=== PATIENT | female | born 1970 | race Caucasian/White ===

== ENCOUNTER 2017-01-20 13:09 | Inpatient (IN) | payer OTHER ==
--- NOTE | ~2017-01-20 | CR63 ---
[facility] A Service of [facility] RADIOLOGY TEXT RESULTS PATIENT: ADELA JAVIER LOCATION: [facility] 338-01 : [birth year] UNIT #: [id number] AGE: [address]: ANGELA CLIFTON MD SEX: F ORDER DR: [id number] [place] [id number] [facility] [place]. [place], [place] [address] [id number] MR#: [id number] #: [id number] NAME: ADELA JAVIER : 1970 SEX: F STUDY DATE/TIME: 01/20/2017 14:01 UNIT: [facility] ROOM: STUDY DESCRIPTION: CR Chest 2 View Attending Physician: Dax Wade M.D. Ordering Physician: Dax Wade M.D. Primary Care Physician: Roman Shabazz M.D. MEDICAL IMAGING REPORT This report is preliminary unless electronic signature is present EXAM PA and lateral chest. HISTORY Cough and congestion and shortness of air today. FINDINGS 2 views of the chest demonstrate mild hyperinflation of both lungs. Wyvo-au-ytskwubd interstitial prominence bilaterally, primarily in the lower lungs, could be due to interstitial pneumonitis or edema or scarring. No prior chest x-rays are available for comparison. Small calcified granuloma lateral left lung base. No pleural effusions. Bilateral breast implants. IMPRESSION 1. Moderate interstitial prominence in the lower lungs could be secondary to interstitial pneumonitis or edema or scarring. No prior chest x-rays available for comparison. 2. No focal airspace consolidation. 3. No pleural effusions. Dictated by... Viet Sellers M.D. THIS IS AN ELECTRONICALLY VERIFIED REPORT Viet Sellers M.D. at 01/20/2017 11:24 PM JOEY/gabrielle TD: 01/20/2017 17:26 JOB #: [id number] [facility] A Service of [facility] RADIOLOGY TEXT RESULTS PATIENT: ADELA JAVIER LOCATION: [id number] [birth year] UNIT #: [id number] AGE: [address]: ANGELA CLIFTON MD SEX: F ORDER DR: MEDICAL IMAGING REPORT COPY
--- NOTE | ~2017-01-20 | EKG ---
PATIENT: ADELA JAVIER UNIT #: [id number] Ventricular Rate: 116 BPM Atrial Rate: 116 BPM P-R Interval: 168 ms QRS Duration: 90 ms Q-T Interval: 330 ms QTC Calculation(Bezet): 458 ms P [place]: 76 degrees Calculated R [place]: 66 degrees Calculated T [place]: 62 degrees Diagnosis Line: Sinus tachycardia Diagnosis Line: Left atrial enlargement Diagnosis Line: Nonspecific ST abnormality Diagnosis Line: Abnormal ECG Diagnosis Line: Diagnosis Line: Confirmed by KENNEDY ALATORRE MD ([id number]) on 01/21/2017 Diagnosis Line: 5:41:30 PM INTERPRETING MD: LANDRY FRAGA
--- NOTE | ~2017-01-20 | DS ---
Unit #: [id number] #: [id number] Patient: ADELA JAVIER [id number] [address] [address] [id number] I MR#: [id number] NAME: ADELA JAVIER ROOM: 213 Age: 46 Sex: F Admission Date: 01/20/2017 : 1970 Discharge Date: 01/22/2017 Attending Physician: Zelda Tyson M.D. Primary Care Physician: Roman Shabazz M.D. DISCHARGE SUMMARY PRIMARY CARE PHYSICIAN Dr. Roman Shabazz. PRINCIPAL DIAGNOSES 1. Sepsis secondary to bilateral community-acquired pneumonia. 2. Acute hypoxic respiratory failure, now resolved. 3. Bronchospasm secondary to pneumonia. 4. Hypokalemia. 5. Steroid-induced anxiety. 6. Moderate protein malnutrition. CONSULTANTS None. PROCEDURES 1. Chest x-ray on 01/20/2017 with interstitial prominence in the lower lungs. 2. CT angiogram of the chest on 01/20/2017, which was negative for pulmonary embolism. There are bilateral bronchopneumonia with multifocal patchy nodular densities and tree-in-bud nodular densities throughout both lungs. CLINICAL HISTORY AND HOSPITAL COURSE Ms. Serena Ashford is a very nice 46-year-old female, who presents to the emergency department with cough and chest congestion in addition to significant weakness. Oxygen saturations were low normal upon presentation. Chest x-ray revealed mild pneumonitis and she subsequently underwent a CT angiogram of the chest, which was negative for PE, but did reveal bilateral pneumonia. Upon presentation to the emergency department, the patient's white blood cell count was found to be significantly elevated at 23,000. She was subsequently admitted. The patient was placed on empiric Levaquin. Unfortunately the following day, she still had significant rhonchi and was having a small amount of wheezing as well. White blood cell count was only down to 18,000, though she did remain afebrile. I continued her on Levaquin and placed her on a small dose of IV steroids. This morning, her lungs are much more clear and her hypoxia even ambulating is likely normal. I will know ambulating oxygen saturation still pending. Her white blood cell count is down to 14,000 and this is while on steroid therapy. Unfortunately, she has not slept all night, is quite jittery from steroids and thus, I am going to discontinue them. I think she will improve on Levaquin only as an outpatient and assuming her ambulating oxygen saturation is normal, she Unit #: [id number] #: [id number] Patient: ADELA JAVIER can be discharged home. DISCHARGE CONDITION Stable. DISCHARGE STATUS Discharged to home. DISCHARGE MEDICATIONS Levaquin 750 mg p.o. daily for another five days, diclofenac 75 mg p.o. b.i.d., Percocet 10/325 one tablet p.o. q.4 hours p.r.n. for pain, and tizanidine 4 mg p.o. t.i.d. DISCHARGE INSTRUCTIONS The patient was instructed to follow a regular diet. She can increase her activity as tolerated. FOLLOWUP The patient will follow up with Dr. Shabazz in 2 weeks. Dictated by... Zelda Tyson M.D. ARA/ekaterina TD: 01/24/2017 05:47 JOB #: [id number] DISCHARGE SUMMARY X Zelda Tyson MD X DISCHARGE SUMMARY
--- NOTE | ~2017-01-20 | CT16 ---
[facility] A Service of [facility] RADIOLOGY TEXT RESULTS PATIENT: ADELA JAVIER LOCATION: [facility] : [birth year] UNIT #: [id number] AGE: [address]: Zelda Tyson MD SEX: F ORDER DR: [id number] [facility] [address] [facility] [place]. [place], [place] [address] [id number] I MR#: [id number] Acc #: [id number] NAME: ADELA JAVIER : 1970 SEX: F STUDY DATE/TIME: 01/20/2017 16:46 UNIT: [address] ROOM: [facility] STUDY DESCRIPTION: CT Angio Chest for PE Attending Physician: Michael Rivera M.D. Ordering Physician: Dax Wade M.D. Primary Care Physician: Roman Shabazz M.D. MEDICAL IMAGING REPORT This report is preliminary unless electronic signature is present EXAM CT angiography of the chest with contrast, pulmonary embolism protocol. DATE OF EXAM 01/20/2017 HISTORY 46-year-old female with cough, congestion, fever and shortness of breath for 1 week. COMPARISON PA and lateral chest radiograph 01/20/2017 at 14:01. COMPARISON No previous CT chest at this institution for comparison. PROCEDURE 2 mm axial images through the chest after IV contrast administration. 3-D coronal and MIP reformatted images were obtained. TECHNIQUE NOTE: This CT exam was performed with one or more of the following radiation dose reduction techniques: automatic exposure control, adjustment of mA and/or kV according to patient size, and iterative reconstruction. FINDINGS Multifocal patchy alveolar opacities are scattered throughout both lungs, with extensive clustered tiny nodular densities throughout both lungs, mostly within a tree-in-bud nodular configuration. Findings are consistent with the appearance of bilateral bronchopneumonia. The more dense consolidative change is present within the right middle lobe. [facility] A Service [facility] RADIOLOGY TEXT RESULTS PATIENT: ADELA JAVIER LOCATION: [facility] : [birth year] UNIT #: [id number] AGE: [address]: Zelda Tyson MD SEX: F ORDER DR: No pericardial effusion or pleural effusion. Mildly prominent mediastinal lymph nodes including a subcarinal node measuring 1.3 cm short axis, right paratracheal node measuring 8 mm, thought to be reactive. Normal caliber of the thoracic aorta without dissection. Normal heart size. No pulmonary embolism. Included portions of the upper abdominal organs are within normal limits. No acute osseous abnormalities are identified. Benign calcified granulomatous changes are present in the left lung. IMPRESSION 1. Features of bilateral bronchopneumonia with multifocal patchy nodular densities and tree-in-bud nodular densities throughout both lungs. The most dense consolidative type changes present within the right middle lobe. Short-term radiograph or CT chest followup to document resolution is recommended. 2. No pulmonary embolism. Dictated by... Heather Velázquez M.D. THIS IS AN ELECTRONICALLY VERIFIED REPORT Heather Velázquez M.D. at 01/21/2017 11:57 AM AUBREE/rita TD: 01/21/2017 00:31 JOB #: [id number] MEDICAL IMAGING REPORT COPY
--- NOTE | ~2017-01-20 | HP ---
Unit #: [id number] #: [id number] Patient: ADELA JAVIER [id number] [address] [address] [id number] I MR#: [id number] NAME: ADELA JAVIER ROOM: 25059 Age: 46 Sex: F Admission Date: 01/20/2017 : 1970 Attending Physician: Michael Rivera M.D. Primary Care Physician: Roman Shabazz M.D. HISTORY AND PHYSICAL CHIEF COMPLAINT Cough and chest congestion. HISTORY OF PRESENT ILLNESS The patient is a 46-year-old female with a history of chronic pain of neck and jaws, brought to the emergency room complaining of chest congestion and cough. The patient stated that it started as an upper respiratory infection last Wednesday and has gradually progressed to the point that she could not take it anymore. The patient also stated that she had a wedding shower over the weekend, and she worked continuously for the weekend, and then she was so tired on Wednesday night that she could not breathe. The patient was found to have interstitial pneumonitis on chest x-ray and is being admitted for the above reasons. The patient was found to be hypoxic on room air to 92%. Patient was placed on two liters nasal cannula, and now the patient is saturating 98% on two liters. She denies any fever, chills, nausea, vomiting, diaphoresis, or chest pain. PAST MEDICAL HISTORY Chronic pain at the neck and jaws. PAST SURGICAL HISTORY 1. Foot surgery. 2. Tubal ligation. HOME MEDICATIONS 1. Percocet. 2. Diclofenac. 3. Tizanidine. SOCIAL HISTORY No history of smoking, alcohol, or any illicit drug abuse. FAMILY HISTORY Reviewed and none. ALLERGIES PENICILLIN CAUSES HIVES, RASH, AND FLUSH. REVIEW OF SYSTEMS A 14-point review of systems was performed and only pertinent positive findings are described above. The remaining are negative. Unit #: [id number] #: [id number] Patient: ADELA JAVIER PHYSICAL EXAMINATION GENERAL: Patient is sitting on the bed not in acute distress. VITAL SIGNS: Temperature 97.1, pulse 106, respiratory rate 17, blood pressure 141/102, and saturating 97% on room air. HEENT: Head atraumatic, normocephalic. Pupils equal, round, and reactive to light and accommodation. Extraocular movements are intact. Dry mucous membranes. NECK: Supple. No JVD. LUNGS: Decreased air entry at the bases. Positive for wheezing. HEART: Regular rate and rhythm. ABDOMEN: Soft. Positive bowel sounds. EXTREMITIES: No cyanosis, no clubbing, no edema. NEUROLOGIC: Alert, awake, and oriented. No gross focal motor deficit. DIAGNOSTIC STUDIES LABORATORY: Glucose 105, BUN 7, creatinine 0.6, sodium 133, potassium 3, chloride 93, bicarb 29, calcium 8.6, albumin 2.9, ALT 52, alkaline phosphatase 168, and AST 21. WBC 22.9, hemoglobin 13, hematocrit 38.7, platelets 432,000, and neutrophils 88.7 with a bandemia of 14%. Flu screen is negative. IMAGING: Chest x-ray shows moderate interstitial prominence in the lower lungs could be secondary to interstitial pneumonitis, edema, or scarring. No prior chest x-rays available for comparison. No focal airspace consolidation. No pleural effusions. CARDIOLOGY: EKG shows sinus tachycardia at a rate of 116, P-R interval of 168, nonspecific ST and T abnormality, and QTc of 458. ASSESSMENT 1. Interstitial pneumonitis. 2. Hyponatremia. 3. Hypokalemia. PLAN Admit patient as observation with telemetry. Continue IV antibiotics with levofloxacin and DuoNebs. Check the sputum cultures. Replace the electrolytes per protocol. Check the BNP. Further recommendations will follow. Dictated by Ace Sylvester TD: 01/20/2017 19:24 JOB #: [id number] HISTORY AND PHYSICAL X X HISTORY AND PHYSICAL
--- NOTE | ~2017-01-20 | DS ---
Unit #: [id number] #: [id number] Patient: ADELA JAVIER [id number] [address] [address] [id number] I MR#: [id number] NAME: ADELA JAVIER ROOM: 213 Age: 46 Sex: F Admission Date: 01/20/2017 : 1970 Discharge Date: 01/22/2017 Attending Physician: Zelda Tyson M.D. Primary Care Physician: Roman Shabazz M.D. DISCHARGE SUMMARY ADDENDUM Please note the patient's urine antigen returned positive for Streptococcus pneumoniae, thus she has sepsis secondary to bilateral Streptococcus pneumoniae pneumonia. Dictated by... Ace Carlos/ekaterina TD: 01/24/2017 05:09 JOB #: [id number] DISCHARGE SUMMARY X Zelda Tyson MD X DISCHARGE SUMMARY
[2017-01-20 14:01] LABS: INFLUENZA A NEG (NEG); INFLUENZA B NEG (NEG)
[2017-01-20 14:16] LABS: BASOPHIL% 0.2 % (0-2.5); DIFF IND YES; HEMATOCRIT 38.7 % (35.0-45.0); LYMPHOCYTE# 1.4 X10e3 (1.0-3.5); LYMPHOCYTE% 6.3 % (17.0-45.0); MEAN CELL VOLUME 94.4 FL (83-96); MEAN CORPUSCULAR HEMOGLOBIN 31.8 PG (28-34); MEAN CORPUSCULAR HGB CONC 33.7 g/dL (30-36); MEAN PLATELET VOLUME 6.9 FL (6.5-11.5); MONOCYTE# 1.1 X10e3 (0-1.0); MONOCYTE% 4.8 % (3.0-12.0); NEUTROPHIL# 20.3 X10e3 (1.5-7.1); NEUTROPHIL% 88.7 % (40-75); PLATELET COUNT 432 X10e3 (140-420); RED CELL DISTRIBUTION WIDTH 12.7 % (11.0-15.5); WHITE BLOOD COUNT 22.9 X10e3 (4.0-10.5)
[2017-01-20 14:33] LABS: ALBUMIN SERUM 2.9 g/dL (3.5-5.0); ALKALINE PHOSPHATASE 168 U/L (32-92); ALT (SGPT) 52 U/L (10-40); AST (SGOT) 21 U/L (10-42); BILIRUBIN,TOTAL 0.9 mg/dL (0.2-2.0); BLOOD UREA NITROGEN 7 mg/dL (9-23); BUN/CREATININE RATIO 11.66; CALCIUM SERUM 8.6 mg/dL (8.4-10.2); CARBON DIOXIDE 29 mmol/L (22-31); CHLORIDE 93 mmol/L (100-111); CREATININE SERUM 0.6 mg/dL (0.6-1.4); GLOM FILT RATE Estimated ABOVE60 mL/min (>60); GLUCOSE FASTING 105 mg/dL (70-110); PROTEIN TOTAL SERUM 8.3 g/dL (6.0-8.3); SODIUM 133 mmol/L (135-145)
[2017-01-20 15:53] LABS: ANISOCYTOSIS SL; PLATELET ESTIMATE NORMAL (NORMAL)
[2017-01-20] MEDS ORDERED: PERCOCET 10/3251 TAB PO (18:20)
[2017-01-20] MEDS ORDERED: VOLTAREN75 MG PO (18:20)
[2017-01-20] MEDS ORDERED: TIZANIDINE HCL4 M1 PO (18:20)
[2017-01-21 06:04] LABS: BASOPHIL% 0.2 % (0-2.5); HEMATOCRIT 38.9 % (35.0-45.0); HEMOGLOBIN 13.1 gm/dL (12.0-16.0); LYMPHOCYTE# 1.3 X10e3 (1.0-3.5); MEAN CELL VOLUME 95.4 FL (83-96); MEAN CORPUSCULAR HGB CONC 33.6 g/dL (30-36); MEAN PLATELET VOLUME 7.1 FL (6.5-11.5); MONOCYTE# 0.7 X10e3 (0-1.0); MONOCYTE% 3.9 % (3.0-12.0); NEUTROPHIL% 88.9 % (40-75); PLATELET COUNT 470 X10e3 (140-420); RED BLOOD COUNT 4.08 X10e (3.90-5.30)
[2017-01-21 06:08] LABS: DIFF IND NO
[2017-01-21 06:16] LABS: BLOOD UREA NITROGEN 14 mg/dL (9-23); CALCIUM SERUM 8.3 mg/dL (8.4-10.2); CARBON DIOXIDE 28 mmol/L (22-31); CHLORIDE 97 mmol/L (100-111); CREATININE SERUM 0.5 mg/dL (0.6-1.4); GLOM FILT RATE Estimated ABOVE60 mL/min (>60); GLUCOSE FASTING 88 mg/dL (70-110); SODIUM 134 mmol/L (135-145)
[2017-01-22 04:24] LABS: HEMATOCRIT 37.1 % (35.0-45.0); HEMOGLOBIN 12.4 gm/dL (12.0-16.0); MEAN CELL VOLUME 95.3 FL (83-96); MEAN CORPUSCULAR HEMOGLOBIN 31.9 PG (28-34); MEAN CORPUSCULAR HGB CONC 33.5 g/dL (30-36); MEAN PLATELET VOLUME 6.9 FL (6.5-11.5); RED BLOOD COUNT 3.89 X10e (3.90-5.30); RED CELL DISTRIBUTION WIDTH 12.6 % (11.0-15.5); WHITE BLOOD COUNT 14.7 X10e3 (4.0-10.5)
[2017-01-22 05:52] LABS: BLOOD UREA NITROGEN 15 mg/dL (9-23); CALCIUM SERUM 8.1 mg/dL (8.4-10.2); CARBON DIOXIDE 28 mmol/L (22-31); CHLORIDE 98 mmol/L (100-111); CREATININE SERUM 0.5 mg/dL (0.6-1.4); GLOM FILT RATE Estimated ABOVE60 mL/min (>60); GLUCOSE FASTING 106 mg/dL (70-110); POTASSIUM 4.9 mmol/L (3.5-5.1); SODIUM 132 mmol/L (135-145)
[2017-01-22 10:17] LABS: LEGIONELLA AG URINE NEG (NEG)
[2017-01-22] MEDS ORDERED: LEVAQUIN750 M1 PO (10:44)
== END 2017-01-22 12:03 | disposition home or self-care (01) | DRG 871 ==
LOC: CED 13:09 → CEDOF 18:56 → C3A PCU 20:32 → C2A 01-21 17:34
PROVIDERS: Emergency Medicine; Internal Medicine
PROC: B32SYZZ Computerized Tomography (CT Scan) of Right Pulmonary Artery using Other Contrast (ICD-10-PCS; principal; 2017-01-20)
PROC: B32TYZZ Computerized Tomography (CT Scan) of Left Pulmonary Artery using Other Contrast (ICD-10-PCS; 2017-01-20)
DX: A40.3 Sepsis due to Streptococcus pneumoniae (principal); J13 Pneumonia due to Streptococcus pneumoniae; J96.01 Acute respiratory failure with hypoxia; R65.20 Severe sepsis without septic shock; E44.0 Moderate protein-calorie malnutrition; E87.1 Hypo-osmolality and hyponatremia; J98.01 Acute bronchospasm; E87.6 Hypokalemia; Z68.20 Body mass index [BMI] 20.0-20.9, adult; F41.9 Anxiety disorder, unspecified; T38.0X5A Adverse effect of glucocorticoids and synthetic analogues, initial encounter; Y92.230 Patient room in hospital as the place of occurrence of the external cause; Z88.0 Allergy status to penicillin; Z98.51 Tubal ligation status
CPT/HCPCS: 71020; 71275; 80048; 80053; 83605; 83880; 85025; 85027; 87040; 87070; 87205; 87449; 87651; 87804; 87899; 93005; 94640; 94760; 96361; 96374; 96375; 99291; J1650; J1885; J1956; J2920; J2930; Q9967